=== PATIENT | male | born 1995 | race African-American/Black ===

== ENCOUNTER 2017-08-11 23:10 | Emergency (ER) | payer SELFPAY ==
[2017-08-11] MEDS ORDERED: fentaNYL 100 MCG/2 ML INJ IVP ONE (23:32)
[2017-08-11] MEDS ORDERED: OXYCODONE/APAP 5/325MG PREPACK#4 BTL TAKEHOME ONE (23:47)
[2017-08-11] MEDS ORDERED: IBUPROFEN 600 MG TAB PO ONE (23:47)
[2017-08-11] MEDS ORDERED: OXYCODONE/APAP 5/325 TAB PO ONE (23:47)
--- NOTE | 2017-08-11 23:47 | EDPHY ---
General - History Smoking Status: Current every day smoker Narrative: CHIEF COMPLAINT: Left shoulder pain, snowboarding injury HISTORY OF PRESENT ILLNESS: Patient complains of left shoulder pain status post snowboarding injury. He reports falling at [place] this afternoon. He landed awkwardly on his left shoulder. He was wearing a helmet but did not strike his head or lose consciousness. He has severe pain in the left shoulder. [place] emergency department. He has a mild right- sided low back pain. No midline back pain. No saddle anesthesia. No incontinence of bowel or bladder. No retention of bowel or bladder. No vomiting since the injury. He is visiting from [place] and just arrive to the [place] when this happened ESTABLISHED ORTHOPEDIST: None locally REVIEW OF SYSTEMS: Ten systems reviewed and are negative unless otherwise noted in the HPI PAST MEDICAL HISTORY: None SOCIAL HISTORY: Nonsmoker. Visiting from [place] FAMILY HISTORY: Noncontributory EXAMINATION General Appearance: Alert, no distress HEENT: Normocephalic and atraumatic. Pupils are equal round reactive. No dysconjugate gaze or nystagmus Neck: Supple nontender. No midline tenderness. No crepitus, step-off or deformity. Cardiovascular: Pulses normal throughout. Symmetric radial pulses 2+. Regular rhythm without murmur. Brisk cap refill Respiratory: Lungs are clear in all [place] Neurological: A&O, sensory symmetric, interossei strength symmetric. No wrist drop of the left upper extremity Skin: Warm and dry, no rash. No petechiae or purpura Extremities: Tenderness of the left shoulder joint with elevation at the AC joint. Range of motion is intact but painful. Excellent strength of the elbows and wrists symmetrically. Psychiatric: Mood and affect normal DIFFERENTIAL DIAGNOSES: Including but not limited to AC separation, AC sprain, dislocation, fracture, sprain, strain MDM: 11:30 p.m. Snowboarding injury with left shoulder pain and possible dislocation. He is neuro intact distally. No head or neck injury. No chest or abdominal pain. Mild lower back pain that is soft. X-rays at bedside at this time. 11:45 p.m. I reviewed the x-ray myself. I do not appreciate any fracture. There is no dislocation. There is separation of the AC joint suggestive of sprain. He may also have a sprain elsewhere in the rotator cuff or the labrum injury. He is neuro intact distally. His range of motion is intact albeit painful. He will be placed in a sling for comfort. We discussed removing the sling periodically for range of motion. I will treat him with ibuprofen and a prepack of Percocet pain medication. He is here until Monday evening and will follow up with an orthopedist upon return home to [place]. ED precautions discussed for the duration of his trip in [facility]. He is comfortable with this plan. SUPERVISION: Patient was independently examined, but I discussed the case with my secondary supervising physician Dr. Medrano. ED Precautions: Worsening pain. Erythema, edema, cyanosis, pallor, paresthesia or anesthesia. (Andrew Cedeno) PHYSICIAN DOCUMENTATION: The patient was evaluated and managed by the Physician Truckman. My co- signature indicates that I have reviewed this chart and I agree with the findings and plan of care as documented. I am the secondary supervising physician. (Kaila Medrano) - Objective Vital Signs: Initial Vital Signs Heart Rate 101 H 08/11/17 23:12 Respiratory Rate 16 08/11/17 23:12 Blood Pressure 125/60 H 08/11/17 23:12 O2 Sat (%) 96 08/11/17 23:12 O2 Delivery Mode Room Air Allergies/Adverse Reactions: No Known Allergies Allergy (Unverified 08/11/17 23:15) Medications Given: Discontinued Medications Fentanyl (Sublimaze) 100 mcg IVP EDNOW ONE Stop: 08/11/17 23:33 Last Admin: 08/11/17 23:37 Dose: Not Given Ibuprofen (Motrin) 600 mg PO EDNOW ONE Stop: 08/11/17 23:48 Last Admin: 08/11/17 23:55 Dose: 600 mg Oxycodone/Acetaminophen (Percocet 5/325) 1 tab PO EDNOW ONE Stop: 08/11/17 23:48 Last Admin: 08/11/17 23:54 Dose: 1 tab Oxycodone/Acetaminophen (Percocet 5/325mg Prepack#4) 1 btl TAKEHOME EDNOW ONE Stop: 08/11/17 23:48 Last Admin: 08/11/17 23:55 Dose: 1 btl Departure - Departure Disposition: Home, Routine, Self-Care Clinical Impression: Sprain of shoulder, left Qualifiers: Encounter type: initial encounter Shoulder sprain type: unspecified sprain Qualified Code(s): S43.402A - Unspecified sprain of left shoulder joint, initial encounter Snowboard accident Qualifiers: Encounter type: initial encounter Qualified Code(s): V00.318A - Other snowboard accident, initial encounter AC separation Qualifiers: Encounter type: initial encounter Laterality: left Qualified Code(s): S43.102A - Unspecified dislocation of left acromioclavicular joint, initial encounter Condition: Good Instructions: Ibuprofen (By mouth), Oxycodone/Acetaminophen (By mouth), Shoulder Sprain (ED) Additional Instructions: 1. Anti-inflammatories as discussed as needed Referrals: Kendell Samson MD [Medical Doctor] - As per Instructions
[2017-08-12 00:32] VITALS: BP 122/63; PULSE 85; RESP 18; TEMP 97.9; O2SAT 95
== END 2017-08-12 00:16 | disposition home or self-care (01) ==
DX: S43.402A Unspecified sprain of left shoulder joint, initial encounter (principal); S43.102A Unspecified dislocation of left acromioclavicular joint, initial encounter; F17.200 Nicotine dependence, unspecified, uncomplicated; V00.318A Other snowboard accident, initial encounter; Y92.828 Other wilderness area as the place of occurrence of the external cause; Y93.23 Activity, snow (alpine) (downhill) skiing, snowboarding, sledding, tobogganing and snow tubing
CPT/HCPCS: A4565; J3010